=== PATIENT | male | born 2000 | race Caucasian/White ===

== ENCOUNTER → 2025-07-10 | Outpatient (CLI) | payer OTHER | LOC: M CARPUL 09:08 | PROVIDERS: ATTEND Student in an Organized Health Care Education/Training Program | DX: R05.3 Chronic cough (principal) ==

== ENCOUNTER 2025-07-17 16:57 | Inpatient (IN) | payer OTHER ==
[~2025-07-17] VITALS: Ht 182.9 cm; Wt 90.4 kg
[2025-07-17] MEDS: ONDANSETRON 4MG 2ML VIAL IV ONE (22:11)
[2025-07-17] MEDS: MORPHINE 4 MG/ML 1 ML VIAL IV PRN (22:11)
[2025-07-17 22:15] LABS: BASO # 0.1 10^3/uL (0.0-0.2); BASO % 0.9 % (0.0-1.0); EOS # 0.3 10^3/uL (0.0-0.5); EOS % 2.7 % (0.0-3.0); LYMPH # 3.4 10^3/uL (1.5-5.0); LYMPH % 34.4 % (24.0-44.0); MONO # 0.9 10^3/uL (0.0-0.8); MONO % 9.2 % (2.0-8.0); NEUTROPHILS # 5.2 10^3/uL (1.5-8.5); NEUTROPHILS % 52.6 % (36.0-66.0); PLATELET COUNT, AUTOMATED 370 10^3/uL (150-450)
[2025-07-17 22:28] LABS: INR 0.91
[2025-07-17 22:57] LABS: CALCIUM LEVEL 9.7 MG/DL (8.5-10.1); CARBON DIOXIDE LEVEL 27 MMOL/L (20-31); CHLORIDE LEVEL 105 MMOL/L (98-107); CREATININE FOR GFR 1.14 MG/DL (0.70-1.30); GLOMERULAR FILTRATION RATE > 90.0 (>60); POTASSIUM SERUM 4.8 MMOL/L (3.5-5.1); SODIUM LEVEL 140 MMOL/L (136-145)
[2025-07-17] MEDS ORDERED: ONDANSETRON 4MG TAB PO PRN (23:00)
[2025-07-17] MEDS ORDERED: NS (Normal Saline) 0.9% 1,000 ML IV SCH (23:00)
[2025-07-17] MEDS ORDERED: MORPHINE 2 MG/ML 1 ML VIAL IV PRN (23:00)
[2025-07-17 23:01] VITALS: BP 165/87
[2025-07-17] MEDS: LABETALOL 100 MG/20 ML VIAL IV STA (23:01)
[2025-07-18] VITALS (13 sets, daily range): BP systolic 108–157; BP diastolic 56–95; TEMP 97.7–98.4; O2SAT 96–100
[2025-07-18] MEDS: ACETAMINOPHEN *IV* 1,000 MG in IV 1 EA IV PRN (00:48)
[2025-07-18] MEDS ORDERED: ISOVUE-370 76% 100 ML VIAL As Ordered ONE (01:45)
[2025-07-18] MEDS: PANTOPRAZOLE 40MG VIAL IV SCH (09:01)
[2025-07-18] MEDS: NS (Normal Saline) 0.9% 1,000 ML IV SCH (09:02)
[2025-07-18] MEDS ORDERED: SUMA100T2 PO (10:39)
[2025-07-18] MEDS ORDERED: HOME MED LIST COMPLETE! XX SCH (10:40)
== END 2025-07-18 10:42 | disposition short-term general hospital (02) | DRG 66 ==
LOC: M ED 16:57 → M ED INP 22:56 → M ICU 07-18 00:24
PROVIDERS: ADMIT Student in an Organized Health Care Education/Training Program; ATTEND Internal Medicine Pulmonary Disease
DX: I60.7 Nontraumatic subarachnoid hemorrhage from unspecified intracranial artery (principal)